=== PATIENT | male | born 1975 | race Caucasian/White ===

== ENCOUNTER 2016-10-23 15:02 | Emergency (ER) | payer SELFPAY ==
[~2016-10-23] VITALS: Ht 182.9 cm; Wt 92.5 kg
[2016-10-23 15:22] VITALS: BP 143/74; PULSE 116; RESP 16; TEMP 97.6; O2SAT 97
--- NOTE | 2016-10-23 15:31 | NUR ---
Patient triaged and placed in waiting room. Patient appears in no acute distress at this time. Accompanied by SELF, awaiting available bed, and MD notified of need for MSE.
--- NOTE | 2016-10-23 16:42 | NUR ---
Patient to ER bed H1 to gown for evaluation. Side rails up. Report given to RADHA QUINTERO.
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
--- NOTE | 2016-10-23 17:19 | NUR ---
ER MD Gabriel evaluatign the patient
[2016-10-23] MEDS ORDERED: HYDROcodone/ACETAMIN 5-325 MG TAB (NORCO/ VICODIN) PO ONE (17:45)
--- NOTE | 2016-10-23 17:47 | NUR ---
Off unit for xrays via wheelchair
[2016-10-23 18:34] VITALS: BP 127/71; PULSE 89; RESP 16; TEMP 98.1; O2SAT 98
--- NOTE | 2016-10-23 18:34 | NUR ---
Patient given written and verbal discharge instructions and verbalizes understanding. ER MD Albert discussed with patient the results and treatment provided. Patient in stable condition. ID arm band removed. Patient educated on pain management and to follow up with PMD. Pain Scale 0/10. Opportunity for questions provided and answered.
== END 2016-10-23 18:32 | disposition home or self-care (01) ==
LOC: SED 15:02
DX: S80.12XA Contusion of left lower leg, initial encounter (principal); V89.2XXA Person injured in unspecified motor-vehicle accident, traffic, initial encounter; Y93.89 Activity, other specified; Y92.89 Other specified places as the place of occurrence of the external cause; Y99.8 Other external cause status
CPT/HCPCS: 73590-TC; 99284